=== PATIENT | female | born 1980 | race Caucasian/White ===

== ENCOUNTER 2017-12-13 15:46 | Emergency (ER) | payer BC, OTHER ==
[2017-12-13] MEDS: traMADol 50 MG TAB PO (19:11)
[2017-12-13] MEDS: IBUPROFEN 600 MG TAB PO (19:11)
== END 2017-12-13 19:46 | disposition home or self-care (01) ==
LOC: FTE 15:46
DX: M25.512 Pain in left shoulder (principal)
CPT/HCPCS: 73030; 99283-25